=== PATIENT | male | born 1945 | race Asian ===

== ENCOUNTER 2023-10-28 04:36 | Emergency (ER) | payer OTHER, BC ==
[~2023-10-28] VITALS: Ht 172.7 cm; Wt 68.0 kg
[2023-10-28 04:51] VITALS: BP_SYST 142; PULSE 84; RESP 20; TEMP 98; O2SAT 98
[2023-10-28 05:19] LABS: BILIRUBIN,URINE NEGATIVE (NEGATIVE); BLOOD, URINE NEGATIVE (NEGATIVE); CLARITY/URINE CLEAR (CLEAR); COLOR,URINE YELLOW (YELLOW); GLUCOSE,URINE NEGATIVE (NEGATIVE); KETONES,URINE NEGATIVE (NEGATIVE); LEUKOCYTE ESTERASE ,URINE NEGATIVE (NEGATIVE); NITRITE, URINE NEGATIVE (NEGATIVE); PROTEIN URINE NEGATIVE (NEGATIVE); UROBILINOGEN,URINE 0.2 (0.2-1.0)
[2023-10-28] MEDS ORDERED: CIPR500T5 PO (05:30)
== END 2023-10-28 05:54 | disposition home or self-care (01) ==
LOC: SED 04:36
DX: R30.0 Dysuria (principal); R35.0 Frequency of micturition; R10.30 Lower abdominal pain, unspecified
CPT/HCPCS: 81001; 81003; 99283